=== PATIENT | male | born 1965 | race Caucasian/White ===

== ENCOUNTER 2020-12-10 10:42 | Emergency (ER) | payer MEDICAID ==
[~2020-12-10] VITALS: Ht 170.2 cm; Wt 80.0 kg
[2020-12-10] MEDS ORDERED: HYDROCODONE/ACETAMINOPHEN 5/325MG TABLET PO ONE (11:15)
[2020-12-10] MEDS ORDERED: NAPR-681 MT (13:08)
[2020-12-10] MEDS ORDERED: HYDR-4346 MT (13:08)
[2020-12-10 13:20] VITALS: BP 128/78
[2020-12-10] MEDS ORDERED: T3 PO (17:32)
== END 2020-12-10 13:21 | disposition home or self-care (01) ==
LOC: ER 10:42
DX: S52.532A Colles' fracture of left radius, initial encounter for closed fracture (principal); S52.602A Unspecified fracture of lower end of left ulna, initial encounter for closed fracture; I10 Essential (primary) hypertension; W01.0XXA Fall on same level from slipping, tripping and stumbling without subsequent striking against object, initial encounter; Y93.9 Activity, unspecified; Y92.9 Unspecified place or not applicable
CPT/HCPCS: 29125; 73090; 73110; 99284; Z7610